=== PATIENT | male | born 1970 | race African-American/Black ===

== ENCOUNTER 2017-07-05 16:45 | Outpatient (CLI) | payer BC | END 2017-07-05 16:46 | disposition home or self-care (01) | LOC: BICRAD 16:45 | PROVIDERS: ATTEND Physician Assistant | DX: R09.02 Hypoxemia (principal) | CPT/HCPCS: 71046 ==

== ENCOUNTER 2017-09-02 22:13 | Emergency (ER) | payer BC | END 2017-09-02 23:25 | disposition left against medical advice (07) | LOC: ERS 22:13 | DX: Z53.21 Procedure and treatment not carried out due to patient leaving prior to being seen by health care provider (principal) ==